=== PATIENT | female | born 1965 ===

== ENCOUNTER → 2018-04-11 | Outpatient (CLI) | payer OTHER, MEDICAID ==
--- NOTE | 2018-04-11 08:18 | NOWCEV ---
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 Jose Enrique is fully wheelchair dependent for all mobility within the home. Jose Enrique's current wheelchair which is 15y/o broke down to the point where is it unable to be used. Jose Enrique was referred to this clinic by her doctor to have recommendations made for the most medically appropriate wheelchair to meet her needs within the home. Functional Mobility - Jose Enrique is not able to ambulate, even with an AD such as a walker or cane. Jose Enrique is fully dependent on her mother for all mobility including pivot transfers, all bed mobility, and pushing her MWC due to significant cognitive and motor involvement. Jose Enrique is not able to assist in any functional mobility. Head/Trunk control - Jose Enrique has spasticity in her neck which pulls her head into flexion and R SB. In sitting her R chin rests on her chest. This has caused her to develop skin breakdown on the R side of her neck. Jose Enrique is not able to sit independently. She requires max A to maintain static unsupported sitting, and she pushes into extension. Sitting in her chair, Jose Enrique leans strongly over her R armrest due to her absent trunk control/righting reactions. Motor involvement - Jose Enrique has limited volitional movement. She is able to intermittently lift her UEs to <90degrees actively, but is not able to utilize her arms functionally for any activity (including feeding) due to significant cognitive involvement. She is not able to actively move her LEs. She has increased tone in her neck pulling her into a torticollis on the R. She is not able to fully achieve midline with her head passively. Her L foot is contracted into PF and inversion, and her L hip is internally rotated, while her R hip is externally rotated. Her hips can be moved passively to neutral. B hips can be flexed passively to 90degrees, although she does exhibit some extensor tone when her LLE is passively flexed. Jose Enrique's mother reports that Jose Enrique's body pushes strongly into extension during her seizures, which she experiences multiple time a day. Posture - Jose Enrique has a significant thoracic kyphosis and scoliosis. Her L ilium is higher than her R, and her R shoulder is significantly elevated. Her head is in a flexed position so that he chin is on her chest, and her head is sidebent R. Jose Enrique's L foot is plantar flexed and inverted, and her L hip is internally rotated while her R hip is externally rotated. Skin Sensation - Jose Enrique is incontinent of bowel and bladder. This is managed with use of diapers. Her mother denies any skin breakdown. She does have skin breakdown on the R side of her neck. There is more swelling in Jose Enrique's LLE than her R, and her mother reports that her ankle and feet swell more if left in a dependent position. Endurance - Jose Enrique is in her chair for the majority of the day. She needs to be tilted back frequently due to her poor postural endurance, and limited ability to maintain upright independently. ADLs - Jose Enrique is dependent on her mother for all ADLs including dressing, feeding , bathing and self care tasks. A MWC is utilized to access Cognitive/Social - Jose Enriuqe lives with her mother on the first story of their home with a ramp to enter. Jose Enrique has severe cognitive impairment. She is mostly non-verbal and is unable to make her needs known. She relies on her mother of all needs. Current wheelchair - Jose Enrique had been utilizing a ifxt-zz-ohxio MWC which is 15y/ o. Jose Enrique's mother reports that the chair recently fell apart when they were driving. She reports that the side of the chair broke, causing the back to fall off and the patient fell out of the chair due to the deterioration. This chair is no longer able to be used, and Jose Enrique is currently utilizing a rented transport chair until a new custom chair is ordered. In the transport chair, Jose Enrique is sliding forward which is causing significant safety concerns, especially when Jose Enrique has seizures. MEDICAL and FUNCTIONAL NEED/OBJECTIVES To replace Jose Enrique's current custom [id number]-li-sptpa MWC and seating system which is 15y/o and in disrepair. This will provide Jose Enrique with safe and consistent assisted access to her home and MRADLs. PRIMARY FUNCTIONAL LIMITATION (G Code) * Mobility CURRENT STATUS OF PRIMARY FUNCTIONAL LIMITATION (Severity Modifier) * At least 80 percent but less than 100 percent impaired, limited or restricted (CM) GOAL STATUS OF PRIMARY FUNCTIONAL LIMITATION (Severity Modifier) * At least 80 percent but less than 100 percent impaired, limited or restricted (CM) DISCHARGE STATUS OF PRIMARY FUNCTIONAL LIMITATION (Severity Modifier) * At least 80 percent but less than 100 percent impaired, limited or restricted (CM) EQUIPMENT RECOMMENDATIONS AND JUSTIFICATIONS The following recommendations are believed to be the most cost effective way to meet the patients medical and functional needs. * Manual tilt-in space wheelchair: Needed to replace Jose Enrique's current tilt-in- space MWC which has deteriorated to the point where is can no longer be utilized. See above for details re: current chair. Jose Enrique is not able to ambulate, even with an AD such as a walker, crutches, or cane due to no volitional LE movement and significant cognitive involvement. She is not able to utilize a std MWC, light weight or ultra light weight MWC due to her poor postural control. Utilizing these chair would cause considerable safety concerns. The [id number]-rv-stzrn function is necessary to provide Jose Enrique with regular pressure relief to prevent skin breakdown as she is unable to perform any independent pressure relief, as well as to assist with repositioning in her chair, and assisted ADLs such as dressing. This cannot be accomplished without a tilt function which is not available to other manual chairs. Jose Enrique will be utilizing her manual vlmw-xh-yhdbx chair time study technician for assisted access to MRADLs in her home. Jose Enrique is unable to self propel due to significant cognitive involvement and poor motor function. Jose Enrique can complete transfers to/ from her wheelchair safely with max A from her mother. * Anti-thrust skin protection positioning cushion: Needed to prevent Jose Enrique's pelvis from sliding forward in her chair when having a seizure and her body moves into an extensor pattern. Additionally, a skin protection cushion is necessary for adequate pressure distribution, as Jose Enrique is unable to perform independent pressure relief due to significant cognitive involvement, and she is incontinent of bowel and bladder. This places her at high risk for skin breakdown. An off the shelf cushion would not provide Jose Enrique with adequate pressure distribution or positioning and would allow sheering forces to occur leading to skin breakdown. * Contoured posterior positioning backrest: Needed to work in conjunction with Jose Enrique seat cushion to provide postural support and pressure distribution to decrease risk of skin breakdown. Additionally, Jose Enrique has absent postural responses and righting reactions. Therefore a contoured positioning backrest is necessary in order to maintain midline control and prevent her from falling to the R when in her chair. This cannot be accomplished with an off the shelf backrest. * Anterior chest support: Necessary to provide Jose Enrique with postural control to prevent her from falling forward when being transported in a vehicle to medical appointments, as she does not have effective righting reactions. * Headrest with removable mount: Needed to provide Tonys head with support when utilizing the bdyz-nn-ncmzo function on her chair. The removable mount is necessary so the head rest can be removed for assisted ADLs and self care tasks. * Angle adjustable foot plates: Needed to accommodate for Jose Enrique's PF and inversion contracture on her L ankle. Without the angle adjustable foot plate, Jose Enrique will have areas of increased pressure under her foot which can lead to skin breakdown. * Padded foot plates: Needed to prevent skin breakdown under Jose Enrique's feet as she is unable to wear shoes due to her L ankle contracture. * Solid seat gonzalez: Needed to provide a solid base for Jose Enrique's seat cushion to prevent it from sagging. It is necessary for Tonys seat to be firmly supported to provide optimal postural control for activities such as feeding when in her chair. * Anti-tippers: Needed to prevent Tonys chair from tipping over backward when she is having a seizure or when utilizing the tltq-zp-rgxmo function. * Height adjustable arm rests: Needed to provide Jose Enrique with UE and postural support when sitting in her chair. Due to her scoliosis Jose Enrique leans to the R and places increased pressure on her R arm rest to maintain her posture. The arm rest needs to be elevated to meet Jose Enrique's arm. Additionally, the elevated height and full length arm rest is necessary in order to attach Jose Enrique's tray and ensure that it is at the proper height for assisted feeding. * Elevating leg rests: Needed to manage swelling in Jose Enrique's LEs that occurs when her feet are in a dependent position. * Padded pelvic belt: Needed to secure Jose Enrique's pelvis to prevent her from sliding forward in her chair, and to provide safety especially when having seizures. * Tray: Needed to provide Jose Enrique with UE support to allow for improved postural control, as well as to provide a surface to perform assisted feeding from. * Transit tie downs: Needed to safely secure Jose Enrique's chair when being transported to medical appointments. These recommendations are based on the likelihood that Jose Enrique will require the use of a manual tilt- in space wheelchair for all mobility and access to MRADLs in the home for the rest of her life. If you have any questions or concerns regarding the stated recommendations, please feel free to contact the therapist at . Thank you for your cooperation in obtaining the necessary equipment for this patient. LIANA Guadarrama
== END ==
PROVIDERS: ATTEND Internal Medicine
DX: G40.812 Lennox-Gastaut syndrome, not intractable, without status epilepticus (principal); G82.20 Paraplegia, unspecified; Z99.3 Dependence on wheelchair
CPT/HCPCS: 97161; G8978; G8979; G8980